=== PATIENT | female | born 1965 | race Caucasian/White ===

== ENCOUNTER 2018-08-13 10:38 | Day surgery (SDC) | payer OTHER ==
[~2018-08-13] VITALS: Ht 160 cm; Wt 118.4 kg
[~2018-08-13 10:38] MED LIST: Acid Controller20 MG PO; B Complex1 EAC2; CALCAVITDA; CHOL10002; Daily Multiple1 EACH; FISH1000; METF500; MOMENI; PROGESTERONE; RHINOCORT ALL8.43 ML
== END 2018-08-13 13:33 | disposition home or self-care (01) ==
LOC: ORSCMMR 10:38 → ORD 11:30 → ORSCSDS 12:00 → ORSCMMR 12:00 → ORD 12:00 → ORSCMMR 13:33
PROVIDERS: Surgery
PROC: 0DJD8ZZ Inspection of Lower Intestinal Tract, Via Natural or Artificial Opening Endoscopic (ICD-10-PCS; principal; 2018-08-13 12:00)
DX: Z12.11 Encounter for screening for malignant neoplasm of colon (principal); K64.8 Other hemorrhoids; K21.9 Gastro-esophageal reflux disease without esophagitis; E78.5 Hyperlipidemia, unspecified; E66.9 Obesity, unspecified; Z68.42 Body mass index [BMI] 45.0-49.9, adult; Z79.899 Other long term (current) drug therapy
CPT/HCPCS: J2405; J7120